=== PATIENT | male | born 1980 | race Caucasian/White ===

== ENCOUNTER 2021-07-27 13:38 | Inpatient (IN) | payer OTHER ==
[~2021-07-27] VITALS: Ht 195.6 cm; Wt 99.0 kg
--- NOTE | ~2021-07-27 | CON ---
[address] [address] CONSULTATION Name: RICCARDO DENG Room: [address] IN M.R.#: [id number] Admission: 07/27/21 Attend Phys: Zakiya Weber Discharge: Date of : 78 Report #: [id number] THIS REPORT FOR: cc: FAM - No family physician/PCP FAM - No family physician/PCP Jordin Kirby MD [facility] ~ DATE OF CONSULTATION: 07/27/2021 CARDIOLOGY CONSULTATION HISTORY OF PRESENT ILLNESS: The patient is a 40-year-old single white male who I was asked to see in the Emergency Room today after he was noted to have atrial flutter. Unfortunately, no old records available. The patient currently lives in [place]. He has had atrial arrhythmias since he was 18 years old. He has gone to the emergency room several times. Finally, when he was 25, he was diagnosed with atrial fibrillation and was cardioverted. He was tried on several medications including flecainide, Rythmol, diltiazem and metoprolol. On one occasion, he actually developed bradycardia. He eventually underwent radiofrequency ablation in [place], [place] in 2018. Since that time, about once every 6 months, he will have an episode, his heart will race, does not last very long. He occasionally takes metoprolol as needed. He denies a history of lightheadedness, syncope. He apparently has never had a stress test. Denies a history of chest pain, shortness of breath, edema. Recently, he was driving from [place] to visit a friend here in [place]. Last night, he felt his heart racing. He tried Valsalva, did not work. He did not have any metoprolol with him. He finally drove himself to the Emergency Room. He was found to be in atrial flutter. He was started on intravenous diltiazem and Cardiology consultation requested. In the past, the patient was on warfarin for a period of time. He cannot afford Xarelto. PAST MEDICAL HISTORY: He has had a history of high blood pressure. He has had glucose intolerance in the past. He was on metformin in the past. PAST SURGICAL HISTORY: He has had no surgical procedures. CURRENT MEDICATIONS: He currently is on no chronic medications. ALLERGIES: Has no known drug allergies. FAMILY HISTORY: His grandfather had a pacemaker. SOCIAL HISTORY: He is going through a divorce. 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 Unfortunately, he has no medical insurance. He smokes a half pack of cigarettes a day. Used to drink a case of beer a day. No longer abuses alcohol. He has a history of IV meth use [place] [address] CONSULTATION Name: RICCARDO DENG Room: [address] IN [facility]#: [id number] Admission: 07/27/21 Attend Phys: Zakiya Weber Discharge: Date of : 78 Report #: [id number] abused IV meds recently, although Friday he did use methamphetamine. REVIEW OF SYSTEMS: No history of a stroke, asthma, liver disease, kidney disease, chronic skin condition, cancer, psychiatric illness. PHYSICAL EXAMINATION: GENERAL: Revealed a young male, lying in bed, appeared in no acute distress. VITAL SIGNS: Blood pressure 120/70, pulse now is 80. He was afebrile. HEENT: He was anicteric. Conjunctivae pink. Mucosa is moist. NECK: Veins not distended. No carotid bruits. Neck supple. CHEST: Clear to auscultation. CARDIAC: Regular rate and rhythm, no significant murmurs. ABDOMEN: Soft. EXTREMITIES: Had no edema. Posterior tibial pulse 2+ bilaterally. SKIN: Cool and dry. NEUROLOGIC: Nonfocal. LABORATORY DATA: His ECG shows atrial flutter with 2:1 ventricular response rate. On workup in the Emergency Room today, the patient had a portable chest x-ray that showed normal heart size and clear lung rudolph. On lab work, potassium 3.6, creatinine 0.9. Liver function studies were normal. His hemoglobin is 13.9. COVID antigen stat test was negative. IMPRESSION AND RECOMMENDATIONS: 1. Atrial flutter, recurrent following ablation. The patient has a CHADS score of 0. I do not feel he needs anticoagulation at this time. I would consider starting sotalol. If he fails to convert, I would consider repeat cardioversion. 2. History of IV drug abuse. 3. History of morbid obesity. The patient previously weighed over 300 pounds. He now weighs 200 pounds. 4. History of elevated blood pressure. 5. History of glucose intolerance. The patient is no longer on metformin. 6. Tobacco abuse. 7. History of alcohol abuse. By: 1418 1534Dmalcolm Kirby MD, FACC /nt
[2021-07-27 13:53] VITALS: BP 138/86
[2021-07-27] MEDS ORDERED: TOPROL XL50 MG PO (13:58)
--- NOTE | 2021-07-27 14:19 | EKG ---
[place] [address] ELECTROCARDIOGRAM REPORT Name: RICCARDO DENG Room: [facility]#: [id number] Admission: Attend Phys: Discharge: Date of : 78 Date of Service: 07/27/21 1354 Report #: [id number] THIS REPORT FOR: //name// [facility] ED Test Date: 2021-07-27 Test Time: 13:54:33 Pat Name: RICCARDO DENG Department: Room: Gender: Networking Technician: : 1980 Requested By: Colin Hernandez Order Number: [id number] MD: Jordin Kirby Measurements Intervals [place] Rate: 168 P: 0 CT: 92 QRS: -8 QRSD: 110 T: 148 QT: 281 QTc: 470 Interpretive Statements atrial flutter with 2:1 AV block Repol abnrm suggests ischemia, diffuse leads Baseline wander in lead(s) V2 No previous ECG available for comparison Electronically Signed On 07-27-2021 14:18:58 CDT by Jordin Kirby [email or web address] <ELECTRONICALLY SIGNED> By: Jordin Kirby MD, [facility] 07/27/21 1418 1354 1354 Jordin Kirby MD, [facility] /EPI
[2021-07-27 14:40] LABS: ABSOLUTE BASOPHILS 0.2 thou/uL (0.0-0.2); ABSOLUTE EOSINOPHILS 0.2 thou/uL (0.0-0.7); ABSOLUTE LYMPHOCYTES 2.5 thou/uL (0.8-5.3); ABSOLUTE MONOCYTES 1.2 thou/uL (0.0-1.2); ABSOLUTE NEUTROPHILS 10.5 thou/uL (1.6-8.1); BASOPHILS 1.1 %; EOSINOPHILS 1.2 %; HEMATOCRIT 40.5 % (42.0-52.0); HEMOGLOBIN 13.9 gm/dL (14.0-18.0); LYMPHOCYTES 17.1 %; MCH 30.9 pg (26.0-34.0); MCHC 34.4 g/dL (28.0-37.0); MCV 89.8 fL (80.0-100.0); MONOCYTES 8.3 %; MPV 7.6 fl. (7.2-11.1); NUCLEATED RBCS 0 /100WBC; PLATELET COUNT* 276 thou/uL (150-400); POLYS 72.3 %; RDW-CV 13.9 % (10.5-14.5); WBC 14.6 thou/uL (4.0-11.0)
--- NOTE | 2021-07-27 14:49 | EKG ---
[place] [address] ELECTROCARDIOGRAM REPORT Name: RICCARDO DENG Room: [place] [address] ADM IN .R.#: [id number] Admission: 07/27/21 Attend Phys: Joss Dennis Discharge: Date of : 78 Date of Service: 07/27/21 1406 Report #: [id number] THIS REPORT FOR: //name// [facility] ED Test Date: 2021-07-27 Test Time: 14:06:59 Pat Name: RICCARDO DENG Department: Room: [facility] Gender: M Mechanical Fitter: : 1980 Requested By: Colin Hernandez Order Number: [id number] MD: Jordin Kirby Measurements Intervals [place] Rate: 162 P: ID: QRS: 3 QRSD: 125 T: 261 QT: 327 QTc: 538 Interpretive Statements Atrial flutter Ventricular premature complex nonspecific st segment changes Baseline wander in lead(s) I,II,III,aVR,aVL,aVF,V1,V2,V3,V4,V5,V6 Compared to ECG 07/27/2021 13:54:33 Ventricular premature complex(es) now present Electronically Signed On 07-27-2021 14:48:44 CDT by Jordin Kirby [email or web address] <ELECTRONICALLY SIGNED> By: Jordin Kirby MD, [facility] 07/27/21 1448 1406 1406 Jordin Kirby MD, [facility] /EPI
[2021-07-27 14:55] LABS: CALCIUM 9.4 mg/dL (8.5-10.1); CREATININE 0.9 mg/dL (0.6-1.3); POTASSIUM 3.6 mmol/L (3.5-5.1)
[2021-07-27 15:05] LABS: ALBUMIN 3.6 g/dL (3.4-5.0); TOTAL BILIRUBIN 0.3 mg/dL (<0.1-1.0); TOTAL PROTEIN 7.9 g/dL (6.4-8.2)
--- NOTE | 2021-07-27 16:33 | 2DMMODE ---
[place] [address] 2 D/M-MODE ECHOCARDIOGRAM Name: RICCARDO DENG Room: [place] [address] ADM IN Og#: [id number] Admission: 07/27/21 Attend Phys: Joss Dennis Discharge: Date of : 78 Date of Service: 07/27/21 1633 Report #: [id number] THIS REPORT FOR: cc: FAM - No family physician/PCP FAM - No family physician/PCP Jordin Kirby MD [facility] ~ APPROVED REPORT Study performed: 07/27/2021 15:22:38 EXAM: Comprehensive 2D, Doppler, and color-flow Echocardiogram Patient Location: In-Patient Room #: er Status: routine BSA: 2.22 HR: 140 bpm BP: 126/79 mmHg Rhythm: Atrial Fibrillation Other Information Study Quality: Good Indications Atrial Fibrillation 2D Dimensions IVSd: 13.83 (7-11mm) LVOT Diam: 23.81 (18-24mm) LVDd: 39.70 mm PWd: 12.44 (7-11mm) Ascending Ao: 32.68 (22-36mm) LVDs: 25.90 (25-40mm) Aortic Root: 34.33 mm Volumes Left Atrial Volume (Systole) LA ESV Index: 26.70 mL/m2 Aortic Valve AoV Peak Drew.: 1.31 m/s AO Peak Gr.: 6.91 mmHg LVOT Max P.84 mmHg AO Mean Gr.: 4.17 mmHg LVOT Mean P.56 mmHg LVOT Max V: 0.84 m/s AO V2 VTI: 18.86 cm LVOT Mean V: 0.57 m/s MYRNA (VTI): 3.37 cm2 LVOT V1 VTI: 14.27 [place] [address] 2 D/M-MODE ECHOCARDIOGRAM Name: RICCARDO DENG Room: [address] IN .R.#: [id number] Admission: 07/27/21 Attend Phys: Joss Dennis Discharge: Date of : 78 Date of Service: 07/27/21 1633 Report #: [id number] TDI Lateral E' Drew.: 0.18 m/s Pulmonary Valve PV Peak Drew.: 0.75 m/s PV Peak Gr.: 2.26 mmHg Left Ventricle The left ventricle is normal size. There is normal LV segmental wall motion. Mild concentric left ventricular hypertrophy. Left ventricular systolic function is normal. The left ventricular ejection fraction is within the normal range. LVEF is >70%. This study is not technically sufficient to allow evaluation of the LV diastolic function due to atrial fibrillation. Right Ventricle The right ventricle is normal size. The right ventricular systolic function is normal. Atria The left atrium size is normal. The right atrium size is normal. Aortic Valve The aortic valve is normal in structure. No aortic regurgitation is present. There is no aortic valvular stenosis. Mitral Valve The mitral valve is normal in structure. There is no mitral valve regurgitation noted. No evidence of mitral valve stenosis. Tricuspid Valve The tricuspid valve is normal in structure. Unable to assess PA pressure. Trace tricuspid regurgitation. Pulmonic Valve The pulmonary valve is normal in structure. There is no pulmonic valvular regurgitation. Great Vessels The aortic root is normal in size. IVC is not well visualized. Pericardium There is no pericardial effusion. <Conclusion> [place] [address] 2 D/M-MODE ECHOCARDIOGRAM Name: RICCARDO DENG Room: [address] IN .R.#: [id number] Admission: 07/27/21 Attend Phys: Joss Dennis Discharge: Date of : 78 Date of Service: 07/27/211632 Report #: [id number] LVEF is >70%. Mild concentric left ventricular hypertrophy. <ELECTRONICALLY SIGNED> By: Jordin Kirby MD, [facility] 07/27/21 1633 163 1633 Jordin Kirby MD, FACC /INF
[2021-07-27 16:51] VITALS: BP 124/68
[2021-07-27 17:09] VITALS: BP 130/68
[2021-07-27 19:30] VITALS: BP 123/81
[2021-07-28] VITALS: BP 116/71
[2021-07-28 04:00] VITALS: BP 93/54
[2021-07-28 07:54] VITALS: BP 112/68
[2021-07-28 09:04] LABS: ABSOLUTE BASOPHILS 0.1 thou/uL (0.0-0.2); ABSOLUTE EOSINOPHILS 0.2 thou/uL (0.0-0.7); ABSOLUTE LYMPHOCYTES 1.6 thou/uL (0.8-5.3); ABSOLUTE MONOCYTES 0.7 thou/uL (0.0-1.2); ABSOLUTE NEUTROPHILS 9.4 thou/uL (1.6-8.1); BASOPHILS 0.7 %; EOSINOPHILS 1.7 %; HEMATOCRIT 40.9 % (42.0-52.0); HEMOGLOBIN 13.7 gm/dL (14.0-18.0); LYMPHOCYTES 13.4 %; MCH 30.2 pg (26.0-34.0); MCHC 33.4 g/dL (28.0-37.0); MCV 90.5 fL (80.0-100.0); MONOCYTES 5.9 %; MPV 7.6 fl. (7.2-11.1); NUCLEATED RBCS 0 /100WBC; PLATELET COUNT* 273 thou/uL (150-400); POLYS 78.3 %; RBC 4.52 mil/uL (4.50-6.00); RDW-CV 14.1 % (10.5-14.5)
[2021-07-28 09:14] LABS: ALBUMIN 3.6 g/dL (3.4-5.0); CALCIUM 9.5 mg/dL (8.5-10.1); CREATININE 0.8 mg/dL (0.6-1.3); MAGNESIUM 2.3 mg/dL (1.8-2.4); POTASSIUM 4.3 mmol/L (3.5-5.1); TOTAL BILIRUBIN 0.4 mg/dL (<0.1-1.0); TOTAL PROTEIN 7.9 g/dL (6.4-8.2)
[2021-07-28 12:09] VITALS: BP 125/80
[2021-07-28 17:28] VITALS: BP 98/61
[2021-07-28 20:00] VITALS: BP 103/61
[2021-07-29] VITALS: BP 121/79
[2021-07-29 04:00] VITALS: BP 118/71
[2021-07-29 04:41] LABS: HEMATOCRIT 42.1 % (42.0-52.0); HEMOGLOBIN 14.1 gm/dL (14.0-18.0); MCH 30.4 pg (26.0-34.0); MCHC 33.6 g/dL (28.0-37.0); MCV 90.6 fL (80.0-100.0); MPV 7.8 fl. (7.2-11.1); RBC 4.65 mil/uL (4.50-6.00); RDW-CV 14.3 % (10.5-14.5); WBC 12.5 thou/uL (4.0-11.0)
[2021-07-29 04:46] LABS: CALCIUM 9.4 mg/dL (8.5-10.1); CREATININE 0.8 mg/dL (0.6-1.3); MAGNESIUM 2.1 mg/dL (1.8-2.4); POTASSIUM 3.8 mmol/L (3.5-5.1)
[2021-07-29] MEDS ORDERED: SORINE 80 MG TA80 M1 PO (06:42)
[2021-07-29 07:28] LABS: AMP/METHAMP POSITIVE (Negative); BARBITURATES Negative (Negative); BENZODIAZEPINES Negative (Negative); COCAINE Negative (Negative); METHADONE Negative (Negative); OPIATES Negative (Negative); PCP Negative (Negative); THC Negative (Negative)
[2021-07-29 07:55] VITALS: BP 122/66
[2021-07-29 11:10] VITALS: BP 122/66
[2021-07-29 11:28] VITALS: BP 111/63
[2021-07-29 12:16] VITALS: BP 122/66
--- NOTE | 2021-07-30 11:34 | EKG ---
[place] [address] ELECTROCARDIOGRAM REPORT Name: RICCARDO DENG Room: [address] IN M.R.#: [id number] Admission: 07/27/21 Attend Phys: Joss Dennis Discharge: 07/29/21 Date of : 78 Date of Service: 07/28/21 0644 Report #: [id number] THIS REPORT FOR: //name// [facility] Test Date: 2021-07-28 Test Time: 06:44:06 Pat Name: RICCARDO DENG Department: Room: [facility] Gender: M Surveillance Supervisor: RINA : 1980 Requested By: Jordin Kirby Order Number: [id number] Patel MD: Ethan Castellanos Measurements Intervals [place] Rate: 59 P: 46 [place]: 143 QRS: 49 QRSD: 85 T: 62 QT: 467 QTc: 463 Interpretive Statements Sinus bradycardia Left atrial enlargement Probable left ventricular hypertrophy Missing lead(s): V3 Compared to ECG 07/27/2021 14:06:59 Atrial abnormality now present Atrial flutter no longer present Ventricular premature complex(es) no longer present Electronically Signed On 07-30-2021 11:34:31 CDT by Ethan Castellanos [email or web address] <ELECTRONICALLY SIGNED> By: Ethan Castellanos MD, [facility] 07/30/21 1134 0644 0644 Ethan Castellanos MD, [facility] /EPI
--- NOTE | 2021-07-30 11:44 | EKG ---
[place] [address] ELECTROCARDIOGRAM REPORT Name: RICCARDO DENG Room: [address] [place] IN M.R.#: [id number] Admission: 07/27/21 Attend Phys: Joss Dennis Discharge: 07/29/21 Date of : 78 Date of Service: 07/29/21 1150 Report #: [id number] THIS REPORT FOR: //name// [facility] Test Date: 2021-07-29 Test Time: 11:50:10 Pat Name: RICCARDO DENG Department: Room: [address] Gender: M Manufacturing Engineering Director: SAMIR : 1980 Requested By: Riya Pittman Order Number: [id number] Patel MD: Ethan Castellanos Measurements Intervals [place] Rate: 54 P: 52 [place]: 140 QRS: 55 QRSD: 91 T: 50 QT: 455 QTc: 432 Interpretive Statements Sinus rhythm Probable left atrial enlargement Probable left ventricular hypertrophy Baseline wander in lead(s) V1 Compared to ECG 07/28/2021 06:44:06 No significant changes Electronically Signed On 07-30-2021 11:44:34 CDT by Ethan Castellanos [email or web address] <ELECTRONICALLY SIGNED> By: Ethan Castellanos MD, [facility] 07/30/21 1144 1150 1150 Ethan Castellanos MD, [facility]AC /EPI
== END 2021-07-29 12:15 | disposition home or self-care (01) | DRG 310 ==
LOC: M.ERS 13:38 → M.TBA-ER 14:40 → M.2W 16:44
PROVIDERS: Emergency Medicine Emergency Medical Services; Internal Medicine; ADMIT Internal Medicine; ATTEND Internal Medicine
DX: I48.92 Unspecified atrial flutter (principal); Z79.01 Long term (current) use of anticoagulants; F15.10 Other stimulant abuse, uncomplicated; F17.210 Nicotine dependence, cigarettes, uncomplicated; Z20.822 Contact with and (suspected) exposure to COVID-19; I10 Essential (primary) hypertension; Z91.14 Patient's other noncompliance with medication regimen; I47.1 Supraventricular tachycardia; E66.01 Morbid (severe) obesity due to excess calories; Z68.25 Body mass index [BMI] 25.0-25.9, adult